=== PATIENT | male | born 1960 | race Caucasian/White ===

== ENCOUNTER 2020-03-05 17:30 | Emergency (ER) | payer MEDICARE, MEDICAID ==
[~2020-03-05 17:30] MED LIST: AC500T PO; DCS100C PO; PREPARATION H O60 GM RC
[2020-03-05] MEDS ORDERED: NS IV 1000 ML 1,000 ML ONE (17:46)
[2020-03-05] MEDS ORDERED: fentaNYL INJECTION 100 MCG/2 ML AMP ONE ×5 (18:38→21:57)
[2020-03-05] MEDS ORDERED: WATER (STERILE) FOR INJECTION 20 ML ONE (20:54)
[2020-03-05] MEDS ORDERED: NS (IVPB) 100 ML ONE (20:54)
[2020-03-05] MEDS ORDERED: PIPERACILLIN/TAZO 4.5 GM VIAL (ZOSYN) IV ONE (20:54)
[2020-03-05] MEDS ORDERED: HEParin 1000 UNIT/ML (10ML VIAL) FOR BOLUS ONE (21:09)
[2020-03-05] MEDS ORDERED: HEParin DRIP 25000 UNIT/500ML 500 ML IV ONE (21:10)
--- NOTE | 2020-03-06 11:49 | Diagnostic Imaging Report ---
PROCEDURE: CT head without contrast. TECHNIQUE: Multiple contiguous axial images were obtained through the brain without the use of intravenous contrast. Auto Exposure Controls were utilized during the CT exam to meet ALARA standards for radiation dose reduction. INDICATION: Altered mental status. COMPARISON: No prior studies are available for comparison. FINDINGS: Ventricles and sulci are within normal limits. No sulcal effacement or midline shift is detected. No acute intra-axial or extra-axial hemorrhage is detected. Cisterns are patent. Visualized paranasal sinuses are clear. IMPRESSION: No acute intracranial process is detected. Dictated by: Dictated on workstation # [id number]
--- NOTE | 2020-03-06 12:14 | Diagnostic Imaging Report ---
PROCEDURE: CT chest, abdomen, and pelvis with contrast. TECHNIQUE: Multiple contiguous axial images were obtained through the chest, abdomen, and pelvis after the administration of intravenous contrast. Auto Exposure Controls were utilized during the CT exam to meet ALARA standards for radiation dose reduction. INDICATION: Elevated bilirubin and jaundice. No prior studies are available for comparison. CT CHEST: No axillary lymphadenopathy is seen. No definite mediastinal or hilar lymphadenopathy is detected. The thoracic aorta is normal caliber. Moderate amount of plaque in the descending thoracic aorta particularly upper abdominal aorta with significant luminal narrowing of the upper abdominal aorta. Pulmonary arterial system is without evidence of thromboembolism. There are moderate sized bilateral pleural effusions. No pericardial effusion is seen. There does appear to be a large filling defect in the apex of left ventricle measuring 4.1 x 2.3 cm. This is suggestive of a left ventricular thrombus formation. Parenchymal evaluation does show biapical pleural-parenchymal scarring. There are some areas of atelectasis or infiltrate in both lower lobes. CT ABDOMEN AND PELVIS: There is a large amount of thrombus within the abdominal aorta resulting in significant luminal narrowing of the abdominal aorta. Iliacs are heavily calcified as well. No discrete liver mass is detected. Gallbladder is moderately distended but there is no biliary duct dilatation. Pancreas and spleen are unremarkable. No adrenal mass is detected. The left kidney appears to be atrophic. No contrast is seen excreted from the left kidney. Right kidney does excrete contrast. Aorta is heavily calcified but non-aneurysmal. Again noted is significant mural thickening and thrombus throughout the abdominal aorta with marked luminal narrowing. Celiac appears to be heavily calcified. There appears to be generalized wall thickening involving small and large bowel throughout the abdomen and pelvis consistent with nonspecific enterocolitis. There is some generalized mesenteric fat stranding present as well. There is some free fluid in the pelvis. No loculated fluid collection or free air is identified. Bony structures demonstrate age-indeterminate superior endplate fractures of L1, L4 and L5. No retropulsion is seen. IMPRESSION: 1. A large filling defect within the apex of the left ventricle suggestive of thrombus. 2. Moderate-sized bilateral pleural effusions with associated bibasilar infiltrates or atelectasis. 3. Severe atherosclerotic changes throughout the abdominal and pelvic vasculature with significant stenosis of the abdominal aorta and its branches. 4. Moderate thickening involving small and large bowel loops as well as mesenteric fat stranding. This may be owing to enterocolitis secondary to infection or inflammation. Ischemic colitis cannot be entirely excluded in light of severe vascular disease. 5. Gallbladder hydrops. 6. Atrophic left kidney. 7. Age-indeterminate compression fractures of L1, L4 and L5 vertebral bodies. Dictated by: Dictated on workstation # [id number]
--- NOTE | 2020-03-06 14:04 | Diagnostic Imaging Report ---
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 Evaluate for osteomyelitis. EXAMINATION: Left foot, 03/05/2020. FINDINGS: Three views of the left foot demonstrate marked osteopenia. There is a large soft tissue abnormality along the dorsum of the midfoot to forefoot. The underlying osseous structures demonstrate minimal lucency within the 4th and 5th metatarsal heads but seen on one view only and most likely caused by the lucency in the superimposed soft tissues but if there is continued concern for osteomyelitis MRI with and without contrast could better characterize. No fracture or dislocation appreciated. IMPRESSION: 1. Large soft tissue defect along the dorsum of the mid to lateral foot. 2. Lucencies questioned in the 4th and 5th metatarsals likely caused by the superimposed lucency; however, please see above discussion. Dictated by: Dictated on workstation # [id number]
[2020-03-06 16:16] LABS: ERYTHROCYTE SEDIMENTATION RATE 1 MM/HR (0-30)
[2020-03-06 16:57] LABS: BASOPHILS % (AUTO) 0 % (0-10); EOSINOPHILS % (AUTO) 0 % (0-10); HEMATOCRIT 35 % (40-54); HEMOGLOBIN 12.5 G/DL (13.3-17.7); LYMPHOCYTES % (AUTO) 6 % (12-44); MEAN CORPUSCULAR HEMOGLOBIN 32 PG (25-34); MEAN CORPUSCULAR HGB CONC 36 G/DL (32-36); MEAN CORPUSCULAR VOLUME 90 FL (80-99); MEAN PLATELET VOLUME 11.8 FL (7.4-10.4); MONOCYTES % (AUTO) 4 % (0-12); NEUTROPHILS # (AUTO) 13.7 X 10^3 (1.8-7.8); NEUTROPHILS % (AUTO) 90 % (42-75); PLATELET COUNT 124 10^3/uL (130-400); RED CELL DISTRIBUTION WIDTH 21.2 % (10.0-14.5); WHITE BLOOD COUNT 15.2 10^3/uL (4.3-11.0)
[2020-03-06 16:58] LABS: LYMPHOCYTES # (AUTO) 0.9 X 10^3 (1.0-4.0); MONOCYTES # (AUTO) 0.6 X 10^3 (0.0-1.0)
[2020-03-06 16:59] LABS: BAND NEUTROPHILS 2 %; LYMPHOCYTES % (MANUAL) 4 %; NEUTROPHILS % (MANUAL) 91 %
[2020-03-06 17:00] LABS: BASOPHILS % (MANUAL) 0 %; EOSINOPHILS % (MANUAL) 0 %; INR 1.4 (0.8-1.4); MONOCYTES % (MANUAL) 3 %; NUCLEATED RED BLOOD CELLS 1; POLYCHROMASIA SLIGHT; PROTHROMBIN TIME PATIENT 17.1 SEC (12.2-14.7)
[2020-03-06 17:03] LABS: ALANINE AMINOTRANSFERASE 225 U/L (0-55); ALKALINE PHOSPHATASE 454 U/L (40-136); BILIRUBIN,TOTAL 2.9 MG/DL (0.1-1.0); BUN/CREATININE RATIO 28; CALCIUM 8.1 MG/DL (8.5-10.1); CARBON DIOXIDE 19 MMOL/L (21-32); CHLORIDE 91 MMOL/L (98-107); CREATININE SERUM 0.75 MG/DL (0.60-1.30); GFR ESTIMATED > 60; GLUCOSE 76 MG/DL (70-105); POTASSIUM 5.1 MMOL/L (3.6-5.0); SODIUM 122 MMOL/L (135-145); TOTAL PROTEIN 5.3 GM/DL (6.4-8.2)
[2020-03-06 17:04] LABS: ALBUMIN 2.5 GM/DL (3.2-4.5)
--- NOTE | 2020-03-07 08:20 | Diagnostic Imaging Report ---
CHEST: EXAMINATION: Single view of the chest demonstrates small bilateral pleural effusions with bibasilar atelectasis. Pulmonary vasculature is congested with coarse markings in both lungs, chronic in appearance. Heart unremarkable. A few scattered airspace opacities, one in the right lung base and one in the left perihilar region which could be early infiltrates. Follow-up recommended. IMPRESSION: 1. Small bilateral effusions. 2. Possible scattered bilateral infiltrates follow-up recommended. 3. Pulmonary vascular congestion. Dictated by: Dictated on workstation # [id number]
== END 2020-03-05 23:00 | disposition short-term general hospital (02) ==
LOC: EDUNIT# 17:30 → ER 17:30
DX: I21.4 Non-ST elevation (NSTEMI) myocardial infarction (principal); S91.302A Unspecified open wound, left foot, initial encounter; L89.159 Pressure ulcer of sacral region, unspecified stage; I50.9 Heart failure, unspecified; X58.XXXA Exposure to other specified factors, initial encounter
CPT/HCPCS: 36415; 70450; 71045; 71260; 73630; 74177; 80053; 83605; 83880; 84484; 85007; 85027; 85610; 85652; 85730; 86850; 86900; 86901; 87040; 93005; 96361; 96365; 96375; 96376